=== PATIENT | female | born 1935 | race Caucasian/White ===

== ENCOUNTER 2016-11-19 20:03 | Emergency (ER) | payer MEDICARE, OTHER ==
[~2016-11-19 20:03] MED LIST: ASPIR 8181 MG PO; BAZA CLEANSE & P4 GM TP; BISACODYL10 MG PR; CALCIUM 500 +1 EAC1 PO; CARDIZEM60 MG PO; CLARITIN10 M2 PO; CYPROHEPTADINE H4 MG PO; DONEPEZIL HCL10 MG PO; ENULOSE10 GM/15 M PO; FERROUS SULFAT325 MG PO; FISH OIL 1,0001 EAC1 PO; IPRAT-ALBUT 0.5-3 ML INH; LIPITOR TAB 1010 MG PO; LOPRESSOR50 MG PO; MAPAP500 M1 PO; MEGACE SUSP40 MG/M1 PO; MILK OF MAGNESI30 ML PO; MIRALAX PACK 171 PKT PO; MULTIPLE VITAM1 EACH PO; NAMENDA XR14 MG PO; OMEPRAZOLE40 MG PO; REFRESH PLUS 0.41 EA OP; XARELTO20 MG PO
[2016-11-19 22:39] LABS: HEMOGLOBIN 7.5 gm/dl (12.3-15.3); RED BLOOD COUNT 3.25 M/UL (4.00-5.10)
[2016-11-19 23:01] LABS: BUN/CREATININE RATIO 20 (0-10)
== END 2016-11-20 00:55 | disposition home or self-care (01) ==
LOC: ER1 20:03
PROVIDERS: Physician Assistant
DX: D64.9 Anemia, unspecified (principal); I48.2 Chronic atrial fibrillation; N39.0 Urinary tract infection, site not specified; I10 Essential (primary) hypertension; J44.9 Chronic obstructive pulmonary disease, unspecified; G30.9 Alzheimer's disease, unspecified; F02.80 Dementia in other diseases classified elsewhere, unspecified severity, without behavioral disturbance, psychotic disturbance, mood disturbance, and anxiety; Z86.711 Personal history of pulmonary embolism; Z90.49 Acquired absence of other specified parts of digestive tract; Z95.1 Presence of aortocoronary bypass graft; Z79.01 Long term (current) use of anticoagulants
CPT/HCPCS: 36415; 36430; 71010; 80053; 81001; 82272; 85025; 85610; 85730; 87077; 87086; 87186; 96374; 99284; J0696; P9016

== ENCOUNTER 2017-01-12 07:05 | Emergency (ER) | payer MEDICARE, OTHER ==
[2017-01-12 08:34] LABS: HEMOGLOBIN 8.4 gm/dl (12.3-15.3); RED BLOOD COUNT 3.63 M/UL (4.00-5.10); WHITE BLOOD COUNT 6.8 K/UL (4.5-11.0)
[2017-01-12 08:58] LABS: BUN/CREATININE RATIO 18 (0-10)
== END 2017-01-12 15:41 | disposition home or self-care (01) ==
LOC: ER1 07:05
PROVIDERS: Emergency Medicine
DX: N39.0 Urinary tract infection, site not specified (principal); I48.91 Unspecified atrial fibrillation; J44.9 Chronic obstructive pulmonary disease, unspecified; I10 Essential (primary) hypertension; G30.9 Alzheimer's disease, unspecified; F02.80 Dementia in other diseases classified elsewhere, unspecified severity, without behavioral disturbance, psychotic disturbance, mood disturbance, and anxiety; I25.2 Old myocardial infarction; Z95.0 Presence of cardiac pacemaker; Z66 Do not resuscitate
CPT/HCPCS: 36415; 71010; 80053; 81001; 82550; 82553; 83605; 83690; 83874; 83880; 84484; 85025; 85610; 85730; 87040; 87077; 87086; 87186; 93005; 96365; 99284; J0696; J7050